=== PATIENT | male | born 2005 ===

== ENCOUNTER 2023-11-27 00:59 | Emergency (ER) | payer OTHER ==
[~2023-11-27] VITALS: Ht 177.8 cm; Wt 86.8 kg
[2023-11-27 02:09] VITALS: BP 142/85; PULSE 101; RESP 20; TEMP 98.3; O2SAT 98
== END 2023-11-27 02:10 | disposition home or self-care (01) ==
LOC: ER 00:59
DX: R55 Syncope and collapse (principal); R05.9 Cough, unspecified
CPT/HCPCS: 82962; 93005